=== PATIENT | male | born 1965 | race Caucasian/White ===

== ENCOUNTER 2019-01-28 01:23 | Day surgery (SDC) | payer BC, SELFPAY ==
[2019-01-16 12:34] VITALS: BMI 34.0
[2019-01-28] VITALS (9 sets, daily range): BP systolic 123–149; BP diastolic 67–97; PULSE 64–78; RESP 10–20; TEMP 36.2–37; O2SAT 94–100
--- NOTE | 2019-01-28 07:34 | WPDHPUPDATE1 ---
History and Physical Update Update Date/Time: 01/28/19 07:34 History and Physical has been reviewed, including an updated exam of the patient. There are NO changes in the patient's condition. Risks, benefits, and alternatives have been discussed and questions answered. Patient agrees to proceed with procedure.
--- NOTE | 2019-01-28 12:12 | WPDANESEPPF ---
Anes - Initial Pre Proc Eval Procedure: Operation Date: 01/28/19 13:30 Proposed Procedures p Left Knee Arthroscopy, Proceed As Indicated(Left) - Cornelius Rivera MD Date/Time: 01/28/19 12:12 Surgeon: Cornelius Rivera MD Pre Op Diagnosis: Left Knee Medial Meniscus Tear Patient Data Age: 53 Gender: M Height: 6 ft Weight: 113.6 kg Allergies Allergy/AdvReac Type Severity Reaction Status Date / Time No Known Allergies Allergy Unverified 01/28/19 12:11 Home Medications Medication Instructions Recorded Confirmed Type No Home Medications 01/16/19 01/28/19 History Patient hx anesthesia problems: none Family hx anesthesia problems: none [facility] Social History Social History Smoking status: Former smoker Smoking end date: 02/12/12 Alcohol intake: never Anes - Eval Final PreProcedure Day of Procedure 01/28/19 12:12 Patient weight: obese Heart: regular rate and rhythm Lungs: decreased breath sounds Airway: Mallampati scale class II Neurological: alert and oriented Last oral intake: >/= 8 hours ASA classification: II Emergent: no Anesthetic plan: proceed Anesthesia type and monitoring: general LMA and standard monitoring Informed Consent: The patient's anesthetic plan and its attendant risks and benefits were discussed with the patient/family/POA. Questions were solicited and answers provided to the satisfaction of the patient/family/POA.
[2019-01-28] MEDS: LACTATED RINGERS 1,000 ML 30 ML IV CONT (12:15)
[2019-01-28] MEDS: CELECOXIB 200 MG CAPSULE PO (12:18)
--- NOTE | 2019-01-28 13:55 | WPDHPUPDATE1 ---
History and Physical Update Update Date/Time: 01/28/19 13:55 History and Physical has been reviewed, including an updated exam of the patient. There are NO changes in the patient's condition. Risks, benefits, and alternatives have been discussed and questions answered. Patient agrees to proceed with procedure.
[2019-01-28] MEDS: ceFAZolin 2 GM/D5W 50 ML 2 GM/50 ML BAG IVPB (14:11)
--- NOTE | 2019-01-28 15:10 | PM.PNORT ---
Subjective Subjective Date/Time Seen: 01/28/19 15:10 Objective Data Vital Signs Vital Signs: Vital Signs - 24 hr 01/28/19 11:51 Temperature 36.2 C L Pulse Rate 76 Respiratory Rate 20 Blood Pressure 126/82 Pulse Oximetry 96 Intake/Output Intake/Output: Intake & Output 01/25/19 01/26/19 01/27/19 01/28/19 23:59 23:59 23:59 23:59 Intake Total 50 Balance 50 Meds/Results Medications: Active Medications Generic Name Dose Route Start Last Admin Trade Name Freq PRN Reason Stop Dose Admin Fentanyl Citrate 25 mcg 01/28/19 14:27 Sublimaze IV PUSH Q2M PRN Pain Lactated Ringer's 1,000 mls @ 30 mls/hr 01/28/19 07:15 01/28/19 12:15 Lr - Lactated Ringers Iv IV CONT 30 mls/hr .Q24H SHAJI Administration Lactated Ringer's 1,000 mls @ 30 mls/hr 01/28/19 14:30 Lr - Lactated Ringers Iv IV CONT .Q24H SHAJI Ondansetron HCl 4 mg 01/28/19 14:27 Zofran Inj IV PUSH ONCE PRN Nausea Oxycodone HCl 5 mg 01/28/19 14:27 Roxicodone Ir PO ONCE PRN Pain
--- NOTE | 2019-01-28 15:10 | PM.OP ---
Procedure Note - Brief Procedure Note - Brief Date of procedure: 01/28/19 Pre-op diagnosis: Left Knee Medial Meniscus Tear Post-op diagnosis: same Procedure performed: L KNEE SCOPE Anesthesia: GETA Surgeon: Cornelius Rivera MD Estimated blood loss (mL): 5 Complications: No immediate complications Condition: stable Disposition: PACU
--- NOTE | 2019-01-28 20:20 | OP_ITS ---
CHANGED TO DRAFT 04/13/19 REPORT MOVED FROM [id number] TO CORRECT [id number]/ORIGINALLY SIGNED 01/30/19 @ 1308 DATE OF PROCEDURE: 01/28/2019 PREOPERATIVE DIAGNOSIS: Left knee medial meniscus tear and chondromalacia. POSTOPERATIVE DIAGNOSIS: Left knee medial meniscus tear and chondromalacia. PROCEDURES: Left knee arthroscopy with partial medial meniscectomy and chondroplasty. SURGEON: Cornelius Rivera M.D. ANESTHESIA: General. COMPLICATIONS: None. INDICATIONS: This is a 53-year-old gentleman who came into the office complaining of left knee pain. He eventually had an MRI showing medial meniscus tear and his pain was not controlled with nonoperative measures. He was indicated for left knee arthroscopy. DESCRIPTION OF PROCEDURE: The patient was taken to the operating room in stable condition and place in supine position. General anesthesia induced and the left lower extremity was prepped and draped sterilely from the toes to the thigh. Superomedial portal used for the outflow cannula. Inferolateral port used for the camera. Camera was introduced. 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 Minimal chondromalacia to the patella. The medial compartment was entered. There was a small complex tear of the medial meniscus in the root area. There was grade 3 chondromalacia to the medial femoral condyle. A medial portal was established and a partial medial meniscectomy was performed removing the torn meniscus from the root. Chondroplasty was performed on the medial femoral condyle. The ACL was identified, it was intact. Lateral compartment was entered. There was no tear to lateral meniscus and there was no significant chondromalacia. The trochlea and the patella underwent chondroplasty. There was no tilt of the patella. Tracking was good. The wound was irrigated thoroughly, and then the instruments were removed and the wounds were approximated with 4-0 nylon suture. Sterile dressing applied. The patient was extubated. Andrew I MT: Yumi ABAD
== END 2019-01-28 17:20 | disposition home or self-care (01) ==
PROVIDERS: PCP Family Medicine; Visit Provider Orthopaedic Surgery
PROC: (CPT 29870; principal; 2019-01-28 13:30)
DX: M23.332 Other meniscus derangements, other medial meniscus, left knee (principal); M94.262 Chondromalacia, left knee; Z87.891 Personal history of nicotine dependence; E66.9 Obesity, unspecified; Z68.35 Body mass index [BMI] 35.0-35.9, adult
CPT/HCPCS: 29881; A9270; J0690; J1100; J2405; J2704; J7120